=== PATIENT | female | born 1990 | race Caucasian/White ===

== ENCOUNTER 2016-08-27 13:09 | Emergency (ER) | payer OTHER | END 2016-08-27 16:45 | disposition home or self-care (01) | LOC: ER1 13:09 | DX: S92.341A Displaced fracture of fourth metatarsal bone, right foot, initial encounter for closed fracture (principal); S46.912A Strain of unspecified muscle, fascia and tendon at shoulder and upper arm level, left arm, initial encounter; S29.9XXA Unspecified injury of thorax, initial encounter; W17.89XA Other fall from one level to another, initial encounter; Y93.31 Activity, mountain climbing, rock climbing and wall climbing | CPT/HCPCS: 29105; 71101; 73030; 73610; 73630; 81001; 84703; 99283 ==

== ENCOUNTER 2020-09-28 22:13 | Outpatient (CLI) | payer OTHER ==
[~2020-09-28 22:13] MED LIST: AMOXICILLIN500 M1 PO; AUGMENTIN 875-1 EACH PO; NAPROSYN500 MG PO; ZOFRAN4 MG PO
== END 2020-09-29 00:14 | disposition home or self-care (01) ==
LOC: GENOP 22:13
DX: O99.891 Other specified diseases and conditions complicating pregnancy (principal); R10.9 Unspecified abdominal pain; M54.9 Dorsalgia, unspecified; Z87.440 Personal history of urinary (tract) infections; Z3A.28 28 weeks gestation of pregnancy
CPT/HCPCS: G0463

== ENCOUNTER 2020-12-18 16:38 | Inpatient (IN) | payer OTHER ==
[~2020-12-18] VITALS: Ht 157.5 cm; Wt 70.3 kg
[2020-12-18 17:44] LABS: RED BLOOD COUNT 4.13 M/UL (4.00-5.10); WHITE BLOOD COUNT 11.7 K/UL (4.5-11.0)
[2020-12-18] MEDS ORDERED: PRENATAL VITAM1 EAC3 PO (18:47)
[2020-12-19] MEDS ORDERED: IBUPROFEN800 MG PO (15:04)
[2020-12-19] MEDS ORDERED: COLACE100 MG PO (15:04)
[2020-12-19] MEDS ORDERED: HEMOCYTE324 MG PO (15:04)
[2020-12-20 06:13] LABS: HEMOGLOBIN 12.2 gm/dl (12.3-15.3)
== END 2020-12-21 17:06 | disposition home or self-care (01) | DRG 807 ==
LOC: GENOP 16:38 → OB 17:09
PROVIDERS: ADMIT Obstetrics & Gynecology
PROC: 10E0XZZ Delivery of Products of Conception, External Approach (ICD-10-PCS; principal; 2020-12-18)
PROC: 10907ZC Drainage of Amniotic Fluid, Therapeutic from Products of Conception, Via Natural or Artificial Opening (ICD-10-PCS; 2020-12-18)
PROC: 10H073Z Insertion of Monitoring Electrode into Products of Conception, Via Natural or Artificial Opening (ICD-10-PCS; 2020-12-18)
PROC: 4A1H7CZ Monitoring of Products of Conception, Cardiac Rate, Via Natural or Artificial Opening (ICD-10-PCS; 2020-12-18)
DX: O33.7XX0 Maternal care for disproportion due to other fetal deformities, not applicable or unspecified (principal); Z37.0 Single live birth; Z3A.39 39 weeks gestation of pregnancy; Z20.822 Contact with and (suspected) exposure to COVID-19
CPT/HCPCS: 36415; 51702; 81001; 85014; 85018; 85025; 90471; 90715; J2405; J7120; U0002